=== PATIENT | female | born 1995 ===

== ENCOUNTER 2017-04-09 06:57 | Day surgery (SDC) | payer OTHER ==
[2017-04-09 07:33] VITALS: BMI 27.4
--- NOTE | 2017-04-09 08:31 | CP.SDSHP ---
Same Day Surgery H & P - History Proposed Procedure: EGD Pre-Op Diagnosis: SEE NOTES - Previous Medical/Surgical History Neuro: Other Misc: Other Pain: 4.Moderate Pain - Allergies Allergies: Allergies No Known Allergies Allergy (Verified 07/16/15 12:46) - Physical Exam General Appearance: N Vital Signs: Vital Signs 04/09/17 07:41 Temperature 97 F L Pulse Rate 75 Respiratory 19 Rate Blood Pressure 135/81 O2 Sat by Pulse 100 Oximetry Mental Status: Alert & Oriented x3 Neuro: WNL Heart: WNL Lungs: WNL GI: Other - {Optional Preform as Required} Breast: WNL Abdomen: Other Rectal: Other Integument: WNL : WNL Ortho: WNL ENT: WNL - Impression Pt. Evaluated Today:Candidate for Anesthesia & Procedure: Yes - Date & Time Time: 08:31 Short Stay Discharge - Short Stay Discharge Admitting Diagnosis/Reason for Visit: DYSPEPSIA Disposition: HOME/ ROUTINE
[2017-04-09] MEDS ORDERED: Belladonna-Phenobarbital PO STA (08:32)
[2017-04-09] MEDS ORDERED: Pantoprazole 40 mg EC Tab PO STA (08:33)
[2017-04-09] MEDS ORDERED: Propofol 10 mg/ml Inj (20 ML) ONE ×2 (08:35→08:39)
[2017-04-09] MEDS ORDERED: Lactated Ringer's 500 ML IV ONE (08:41)
[2017-04-09 11:15] VITALS: TEMP 97.8
[2017-04-09 11:39] VITALS: RESP 16; O2SAT 100
[2017-04-09 11:44] VITALS: BP 117/78; PULSE 81
== END 2017-04-09 10:45 | disposition home or self-care (01) ==
LOC: C.ENDO 06:57
PROVIDERS: ATTEND Specialist
DX: K20.9 Esophagitis, unspecified (principal); K29.70 Gastritis, unspecified, without bleeding
CPT/HCPCS: 43239; 84703; 88305; 88342; J2001; J2704; J7120